=== PATIENT | female | born 1960 | race Caucasian/White ===

== ENCOUNTER 2016-07-18 11:49 | Day surgery (SDC) | payer BC ==
[~2016-07-18 11:49] MED LIST: BACITRACIN 50,000 UNITS/10 ML SYR IRR ONE; BUPIVACAINE 0.5% 30 ML SDV ONE; LIDOCAINE 1% 30 ML SDV ONE; ROPIVACAINE HCL 20 MG/10 ML INJ EP ONE; ceFAZolin 2 GM/DEXTROSE 100 ML IV ONE
[2016-07-18] MEDS ORDERED: LIDOCAINE 1% 5 ML SDV ONE (12:08)
[2016-07-18] MEDS ORDERED: CEFAZOLIN 2 GM/DEXTROSE/100 ML BAG IV ONE (12:08)
[2016-07-18] MEDS ORDERED: LIDOCAINE 1% 5 ML SDV ID PRN (12:57)
[2016-07-18] MEDS ORDERED: LR 1,000 ML IV ONE (12:57)
[2016-07-18] MEDS ORDERED: MIDAZOLAM 2 MG/2 ML VIAL ONE (13:39)
[2016-07-18] MEDS ORDERED: fentaNYL 100 MCG/2 ML INJ ONE ×2 (13:39→15:17)
[2016-07-18] MEDS ORDERED: PROPOFOL/EMULSION 500 MG/50 ML BOTTLE IV ONE (13:39)
[2016-07-18] MEDS ORDERED: LIDOCAINE 2% 100 MG/5 ML SYR IVP ONE (13:40)
[2016-07-18] MEDS ORDERED: KETOROLAC 30 MG/1 ML SDV ONE (15:06)
[2016-07-18] MEDS ORDERED: ONDANSETRON 4 MG/2 ML VIAL IVP PRN (15:08)
[2016-07-18] MEDS ORDERED: PROMETHAZINE HCL 25 MG/ML INJ IVP PRN (15:08)
[2016-07-18] MEDS ORDERED: ONDANSETRON DISINTEGRATING 4 MG TAB PO PRN (15:08)
[2016-07-18] MEDS ORDERED: PROMETHAZINE HCL 25 MG TAB PO PRN (15:10)
[2016-07-18] MEDS ORDERED: KETOROLAC 30 MG/1 ML SDV IVP ONE (15:30)
--- NOTE | 2016-07-18 19:28 | GOP ---
DATE OF OPERATION: 07/18/2016 SURGEON: Cordelia Jade DPM ANESTHESIA: MAC. ANESTHESIOLOGIST: Cristian Coffman MD. PREOPERATIVE DIAGNOSIS: 1. Digital contracture. 2. Painful skin lesion, 5th digit. POSTOPERATIVE DIAGNOSIS: 1. Digital contracture. 2. Painful skin lesion, 5th digit. PROCEDURE PERFORMED: 1. Excision of skin lesion with biopsy 5th digit left foot 2. Partial amputation 5th digit left foot. SPECIMENS: Skin specimen sent to Pathology for gross and microscopic examination. No additional injectables. Prognosis is good. She is to follow up in 5 days for wound check. ESTIMATED BLOOD LOSS: Less than 3 cc. INDICATIONS: Significant pain 5th digit, despite past surgery which involved an arthroplasty PIPJ and exostectomy of the 5th digit. The patient persists to have pain at the distal lateral aspect of the digit where there is a nucleated, hyperkeratotic painful skin lesion, nail tissue versus deep keratoma, or malignancy unknown. Despite routine debridement of the area and padding modification shoe gear, she persists to have pain, and at this time, she elects to proceed with surgery. I have given her 2 options; total amputation of the 5th digit, or an attempt to salvage the digit but excise the skin lesion, send in for pathology for gross and microscopic examination, and resection of portion of the distal aspect of the digit and distal phalanx, and that is what she opted for. She understands if she were to have persistent pain, then a total amputation would be indicated. DESCRIPTION OF PROCEDURE: The patient was brought into the operating room, placed on the operating table in the supine position. Intravenous sedation administered by the anesthesiologist. A peripheral nerve block was obtained with 3 cc of 0.5% Marcaine plain and 1% lidocaine plain. The lower extremity was prepped and draped in the usual sterile manner. After the limb was elevated , it was exsanguinated with an Esmarch bandage. Ankle tourniquet was inflated to 220 mmHg and the procedure was begun. Webril padding utilized under the ankle cuff. EXCISION OF SKIN LESION: Attention was directed towards the distal aspect of the 5th digit where the suspicious skin lesion was circumscribed, 3 more mm was taken proximal to the nail to be sure to include the matrix, and then section of skin was resected to the level of bone to ensure all pathologic tissue and matrix was resected. Skin lesion was sent to pathology for gross and microscopic examination. Then utilizing the sagittal saw, the distal aspect of the distal phalanx was resected. There were no sharp edges with palpation. Lateral aspect of the digit without prominence. Wound was copiously irrigated with bacitracin irrigation solution. Tourniquet was released and a normal hyperemic response noted to all digits. Distal flap was then brought over proximally and the skin was closed with 4-0 Prolene in a horizontal mattress and simple interrupted suture fashion. Dressings included Xeroform, 4 x 4's, reinforced with tape, and an [place] bandage. The patient tolerated the procedure and anesthesia well and left the operating room, vital signs stable and vascular status intact to all digits. In postoperative recovery, she was doing well. Her will be providing her transportation home. /[id number]/MODL MTDD
== END 2016-07-18 16:30 | disposition home or self-care (01) ==
LOC: FSGY 11:49
PROVIDERS: ATTEND Podiatrist
DX: M24.575 Contracture, left foot (principal); L98.9 Disorder of the skin and subcutaneous tissue, unspecified; L60.3 Nail dystrophy
CPT/HCPCS: J0690; J1885; J2001; J2250; J2704; J2795; J3010

== ENCOUNTER → 2016-11-30 | Outpatient (CLI) | payer BC | LOC: FIMAGING 07:30 | PROVIDERS: ATTEND Family Medicine | DX: Z12.31 Encounter for screening mammogram for malignant neoplasm of breast (principal); Z80.3 Family history of malignant neoplasm of breast | CPT/HCPCS: G0202 ==

== ENCOUNTER 2017-10-24 06:23 | Day surgery (SDC) | payer BC ==
[2017-10-24] MEDS ORDERED: LR 1,000 ML IV ONE (06:43)
--- NOTE | 2017-10-24 07:39 | PDANEPAE ---
ANE History of Present Illness 57 yo female with DUB for hysteroscopy with polypectomy/myomectomy. ANE Past Medical History - Cardiovascular History Hx Hypertension: No Hx Arrhythmias: No Hx Chest Pain: No Hx Coronary Artery / Peripheral Vascular Disease: No Hx CHF / Valvular Disease: No Hx Palpitations: No Cardiovascular History Comment: CHOL RX - Pulmonary History Hx COPD: No Hx Asthma/Reactive Airway Disease: No Hx Recent Upper Respiratory Infection: No Hx Oxygen in Use at Home: No Hx Sleep Apnea: No Sleep Apnea Screening Result - Last Documented: Negative - Neurologic History Hx Cerebrovascular Accident: No Hx Seizures: No Hx Dementia: No - Endocrine History Hx Diabetes: No Hypothyroid: No Hyperthyroid: No Obesity: no - Renal History Hx Renal Disorders: No - Liver History Hx Hepatic Disorders: No - Neurological & Psychiatric Hx Hx Neurological and Psychiatric Disorders: No - Cancer History Hx Cancer: Yes Cancer History Comment: 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 tib fib surgery 1984. hemmorhoidectomy 2005. tonsillectomy 1968 ANE Review of Systems Review of Systems: - Exercise capacity METS (RN): 5 METS - Systems Constitutional: Reports: no symptoms ANE Patient History - Allergies Allergies/Adverse Reactions: No Known Allergies Allergy (Verified 10/07/17 12:58) - Home Medications Home Medications: Atorvastatin Calcium 07/10/16 [Last Taken 07/17/16 08:30] Progesterone 07/10/16 [Last Taken 07/17/16 08:30] Testosterone 07/10/16 [Last Taken 07/17/16 08:30] VITAMIN D 07/10/16 [Last Taken 07/17/16 08:30] Minivelle 10/07/17 [Last Taken Unknown] - NPO status NPO Since - Liquids (Date): 10/23/17 NPO Since - Liquids (Time): 22:00 NPO Since - Solids (Date): 10/23/17 NPO Since - Solids (Time): 22:00 - Anes Hx Anes Hx: no prior problems - Smoking Hx Smoking Status: Never smoked Marijuana use: No - Alcohol Use Alcohol Use: Occasionally (1 beer/ week) - Family Anes Hx Family Anes Hx: neg - N/A Family Hx Anesthesia Complications: none ANE Labs/Vital Signs - Vital Signs Blood Pressure: 138/91 (Pt states this is unusually high for her) Heart Rate: 65 Respiratory Rate: 14 O2 Sat (%): 94 Height: 156.21 cm Weight: 61.235 kg ANE Physical Exam - Airway Neck exam: FROM Mallampati Score: Class 2 Mouth exam: normal dental/mouth exam - Pulmonary Pulmonary: clear to auscultation - Cardiovascular Cardiovascular: regular rate and rhythym - ASA Status ASA Status: II ANE Anesthesia Plan Anesthesia Plan: GA w LMA (TIVA GA first choice, will use LMA if necessary.) Total IV Anesthesia: Yes
[2017-10-24] MEDS ORDERED: fentaNYL 100 MCG/2 ML INJ ONE (08:06)
[2017-10-24] MEDS ORDERED: LIDOCAINE 2% 5 ML SDV ONE (08:06)
[2017-10-24] MEDS ORDERED: DEXAMETHASONE 4 MG/ML VIAL ONE (08:06)
[2017-10-24] MEDS ORDERED: PROPOFOL/EMULSION 500 MG/50 ML BOTTLE IV ONE (08:06)
--- NOTE | 2017-10-24 08:23 | PDHPUP ---
History & Physical Update H&P update statement: This history and physical update is based on an assessment of the patient which was completed after admission or registration (within 24 hours), but prior to the surgery/procedure. H&P update: H&P reviewed & patient examined
[2017-10-24] MEDS ORDERED: KETOROLAC 30 MG/1 ML SDV ONE (08:39)
[2017-10-24] MEDS ORDERED: LR 500 ML IV PRN (08:42)
[2017-10-24] MEDS ORDERED: HYDROCODONE/APAP 5/325 TAB PO PRN (08:42)
[2017-10-24] MEDS ORDERED: NALOXONE HCL 0.4 MG/ML INJ IVP PRN (08:42)
[2017-10-24] MEDS ORDERED: ONDANSETRON 4 MG/2 ML VIAL IVP PRN (08:42)
[2017-10-24] MEDS ORDERED: fentaNYL 100 MCG/2 ML INJ IVP PRN (08:42)
[2017-10-24] MEDS ORDERED: ALBUTEROL 3 ML DEYVIAL IH PRN (08:42)
--- NOTE | 2017-10-24 09:04 | POSTANESTH ---
Post Anesthetic Evaluation Cardiovascular Status: Normal, Stable Respiratory Status: Normal, Stable Level of Consciousness/Mental Status: Can Participate in Eval, Mildly Sleepy, Arousable Pain Control: Adequate, Prn Tx Ordered Nausea/Vomiting Control: Adequate, Prn Tx Ordered Complications Possibly Related to Anesthesia: None Noted
--- NOTE | 2017-10-24 09:08 | POSTOPPROG ---
Post Op Note Date of Operation: 10/24/17 Surgeon: Brittany Dixon Anesthesiologist: Kamilla Montero Anesthesia: LMA Pre-op Diagnosis: PMB polyps Post-op Diagnosis: same Indication: postmenopausal bleeding Procedure: H/S polypectomy, Novasure Findings: thick polyp like tissue Inf/Abcess present in the surg proc area at time of surgery?: No EBL: Minimal
--- NOTE | 2017-10-24 09:40 | GOP ---
[f rep st] OPERATIVE REPORT DATE OF OPERATION: 10/24/2017 SURGEON: Brittany Dixon MD ANESTHESIA: General with LMA. ANESTHESIOLOGIST: Kamilla Montero MD. PREOPERATIVE DIAGNOSIS: 1. Postmenopausal bleeding. 2. Thickened endometrial stripe. POSTOPERATIVE DIAGNOSIS: 1. Postmenopausal bleeding. 2. Thickened endometrial stripe. PROCEDURE PERFORMED: Hysteroscopic polypectomy and NovaSure endometrial ablation. FINDINGS: Thick irregular tissue throughout the endometrial canal. Normal tubal ostia. There was s ome distinct polyp like areas, but also just quite a bit of thick tissue. Normal cervix. ESTIMATED BLOOD LOSS: Minimal. INDICATIONS: Patient is a 57-year-old who has had problematic bleeding over the last year, so an ult rasound showed a thickened endometrium of approximately 1.6 cm. The patient desires evaluation and t reatment and recommend hysteroscopic resection. Also, she requests NovaSure ablation to assure that return of bleeding will be very unlikely. Endometrial biopsy 1 week before procedure was negative. DESCRIPTION OF PROCEDURE: With informed consent signed patient was taken to the operating room and p laced under general anesthesia, then placed in the low dorsal lithotomy position, prepped and draped in the usual sterile fashion. Bladder previously emptied. Speculum placed in the vagina and the cer vix identified. Tenaculum was placed on the anterior lip of the cervix. Cervix gently dilated up to 7 mm. Hysteroscope using normal saline as a filling medium placed into the uterine cavity and findi ngs as noted above. The [employer] TruClear hysteroscopic morcellator placed in through the hy steroscope and resection of all the tissue completed. Hemostasis was noted. Once it was felt that a ll the tissue was removed, the hysteroscope removed and the cervix had to be dilated up to 9 mm and t he NovaSure endometrial ablation device placed in the uterine cavity and length noted to be 6 cm, wid th was 4 cm and integrity test passed and burn time was 55 seconds. The NovaSure was removed and net fluid deficit was 70 cc. Patient placed in a supine position, awakened in the operating room and ta nathanael to the recovery room in stable condition. Tolerated the procedure well. COMPLICATIONS: None. /[id number]/MODL
[2017-10-24] MEDS ORDERED: ACETAMINOPHEN 325 MG TAB PO ONE (10:15)
[2017-10-24 10:43] VITALS: BP 140/86
== END 2017-10-24 11:40 | disposition home or self-care (01) ==
LOC: FSGY 06:23
PROVIDERS: ATTEND Obstetrics & Gynecology Gynecology
PROC: 0U5B8ZZ Destruction of Endometrium, Via Natural or Artificial Opening Endoscopic (ICD-10-PCS; principal; 2017-10-24 08:00)
PROC: 0UDB8ZX Extraction of Endometrium, Via Natural or Artificial Opening Endoscopic, Diagnostic (ICD-10-PCS; principal; 2017-10-24 08:00)
DX: N95.0 Postmenopausal bleeding (principal); N84.0 Polyp of corpus uteri; R93.8 Abnormal findings on diagnostic imaging of other specified body structures; Z79.890 Hormone replacement therapy
CPT/HCPCS: 58563; C1782; J1100; J1885; J2704; J3010

== ENCOUNTER → 2017-12-11 | Outpatient (CLI) | payer BC | LOC: FIMAGING 07:46 | PROVIDERS: ATTEND Obstetrics & Gynecology Gynecology | DX: Z12.31 Encounter for screening mammogram for malignant neoplasm of breast (principal); Z13.820 Encounter for screening for osteoporosis; M85.89 Other specified disorders of bone density and structure, multiple sites; Z78.0 Asymptomatic menopausal state; Z79.890 Hormone replacement therapy; Z82.49 Family history of ischemic heart disease and other diseases of the circulatory system ==